=== PATIENT | female | born 1995 | race Caucasian/White ===

== ENCOUNTER → 2019-11-23 | Outpatient (REF) | payer OTHER ==
[2019-11-23 20:25] LABS: CHLAMYDIA DNA AMPLIFICATION NEGATIVE (NEGATIVE); GC DNA AMPLIFICATION NEGATIVE (NEGATIVE)
== END ==
LOC: M SFHCLERA 15:29
PROVIDERS: ATTEND Nurse Practitioner Family
DX: M54.5 Low back pain (principal)
CPT/HCPCS: 74018; 81002; 81025; 87086; 87661; 96372; G0463; J1885

== ENCOUNTER → 2019-11-23 | Outpatient (CLI) | payer OTHER ==
--- NOTE | 2019-11-23 15:50 | REP ---
Clinical: Lower abdominal and back pain. Technique: Single supine view of the abdomen and pelvis. Findings: Evidence of prior cholecystectomy. Bowel gas pattern is nonspecific. No bowel obstruction, or obvious perforation. No significant foreign body or calcifications noted. Skeletal structures are intact and normal. Impression: Normal abdominal radiograph. Prior cholecystectomy. Electronically Signed by Thomas Candelario MD 11/23/2019 03:41 P
== END ==
LOC: M LRY 15:29
PROVIDERS: ATTEND Nurse Practitioner Family
DX: M54.5 Low back pain (principal); Z90.49 Acquired absence of other specified parts of digestive tract

== ENCOUNTER → 2021-09-22 | Outpatient (CLI) | payer OTHER ==
[~2021-09-22] MED LIST: PROHANCE 279.3MG/ML 15ML VIAL As Ordered ONE
== END ==
LOC: M RAD 14:21
PROVIDERS: ATTEND Ophthalmology
DX: D31.61 Benign neoplasm of unspecified site of right orbit (principal)
CPT/HCPCS: 70543; 70553; A9576